=== PATIENT | female | born 1930 | race Two or more races ===

== ENCOUNTER 2016-07-13 13:28 | Emergency (ER) | payer BC, OTHER ==
[~2016-07-13] VITALS: Ht 162.6 cm; Wt 77.1 kg
[~2016-07-13 13:28] MED LIST: ALPR0.5T PO; CARV3.12 PO; CILO50TA10 PO; CLON0.1T PO; FURO-145 PO; INSU100C10 SQ; INSU100C7 SQ; LEVO88TA9 PO; NEBI5TAB8 PO; ROSU10TA PO
--- NOTE | 2016-07-13 13:40 | NUR ---
pt to er bed 11 accompanied by son. c/o short onset blurring of vision earlier today. states hade same issue yesterday thats why she got concerned. 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 also c/o chronic back pain. gowned and placed on monitor. awaiting md amaya.
--- NOTE | 2016-07-13 14:51 | NUR ---
dr galvez at bedside for eval.
--- NOTE | 2016-07-13 14:55 | NUR ---
iv line started blood drawn ansd sent to lab.
[2016-07-13 14:59] LABS: BASOPHILS % (AUTO) 0.7 % (0.0-2.0); EOSINOPHILS # (AUTO) 0.1 /CMM (0.0-0.7); EOSINOPHILS % (AUTO) 1.6 % (0.0-6.0); HEMATOCRIT 40 % (33-45); HEMOGLOBIN 13.3 g/dL (11.5-14.8); LYMPHOCYTES # (AUTO) 1.5 /CMM (0.8-4.8); LYMPHOCYTES % (AUTO) 21.4 % (20.0-44.0); MEAN CORPUSCULAR HEMOGLOBIN 30 PG (26.0-33.0); MEAN CORPUSCULAR HGB CONC 34 g/dl (31.0-36.0); MEAN CORPUSCULAR VOLUME 91 fL (82-100); MONOCYTES # (AUTO) 0.7 /CMM (0.1-1.30); MONOCYTES % (AUTO) 10.1 % (2.0-12.0); NEUTROPHILS # (AUTO) 4.5 /CMM (1.8-8.9); NEUTROPHILS % (AUTO) 66.2 % (43.0-81.0); PLATELET COUNT (AUTO) 250 /CMM (150-450); RDW COEFFICIENT OF VARIATION 13.3 (11.5-15.0); RED BLOOD CELL COUNT(AUTO) 4.38 MIL/uL (4.0-5.2); WHITE BLOOD COUNT (AUTO) 6.8 K/uL (4.3-11.0)
[2016-07-13 15:17] LABS: CALCIUM, SERUM 8.9 mg/dL (8.5-10.1); POTASSIUM 4.6 mmol/L (3.5-5.1)
[2016-07-13 16:05] LABS: APPEARANCE,URINE Clear (CLEAR); BILIRUBIN,URINE Negative (NEGATIVE); BLOOD, URINE Negative Ery/uL (NEGATIVE); COLOR,URINE Yellow (YELLOW); KETONES,URINE Negative (NEGATIVE); LEUKOCYTE ESTERASE ,URINE Negative (NEGATIVE); NITRITE, URINE Negative (NEGATIVE); PH,URINE 5.5 (5.0-8.0); PROTEIN,URINE Negative (NEGATIVE); UROBILINOGEN,URINE 0.2 EU/dL (0.2)
[2016-07-13 16:06] LABS: UGLUCOSE 100 MG/DL mg/dL (NEGATIVE)
[2016-07-13] MEDS ORDERED: IBUP-1482 PO (16:11)
[2016-07-13] MEDS ORDERED: CARV12.52 PO (16:11)
[2016-07-13] MEDS ORDERED: LANS30CA56 PO (16:11)
[2016-07-13] MEDS ORDERED: LEVO100T9 PO (16:11)
[2016-07-13] MEDS ORDERED: IRBE300T19 PO (16:11)
[2016-07-13] MEDS ORDERED: ESCI10TA PO (16:11)
[2016-07-13] MEDS ORDERED: AMLODIPINE BESYLATE 5 MG TABLET ONE (16:36)
[2016-07-13] MEDS: AMLODIPINE BESYLATE 5 MG TABLET PO ONE (16:43)
--- NOTE | 2016-07-13 18:26 | NUR ---
SIGNIFICANT DECREASE IN B/P. DR VERAS MADE AWARE. IVHL D/C'D. D/C IN STABLE CONDITION.
[2016-07-13 18:28] VITALS: BP 148/84
== END 2016-07-13 18:31 | disposition home or self-care (01) ==
LOC: ER 13:30
DX: I10 Essential (primary) hypertension (principal); M54.5 Low back pain; Z88.0 Allergy status to penicillin; E11.9 Type 2 diabetes mellitus without complications
CPT/HCPCS: 36415; 80048-TC; 81000-TC; 85025-TC; 87086-TC; Z7610

== ENCOUNTER 2017-04-18 12:06 | Emergency (ER) | payer OTHER ==
[~2017-04-18] VITALS: Ht 165.1 cm; Wt 63.5 kg
[~2017-04-18 12:06] MED LIST changes: -ALPR0.5T PO; +CARV12.52 PO; -CARV3.12 PO; -CILO50TA10 PO; -CLON0.1T PO; +ESCI10TA PO; +IBUP-1957 PO; +IRBE300T19 PO; +LANS30CA56 PO; +LEVO100T9 PO; -LEVO88TA9 PO; -NEBI5TAB8 PO; -ROSU10TA PO
[2017-04-18 12:10] VITALS: BP 149/82
== END 2017-04-18 12:52 | disposition home or self-care (01) ==
LOC: ER 12:07
DX: B02.9 Zoster without complications (principal); I10 Essential (primary) hypertension; E11.9 Type 2 diabetes mellitus without complications; M81.0 Age-related osteoporosis without current pathological fracture; Z88.0 Allergy status to penicillin; Z79.4 Long term (current) use of insulin; Z79.899 Other long term (current) drug therapy
CPT/HCPCS: A4606; Z7610

== ENCOUNTER 2017-12-08 05:07 | Emergency (ER) | payer OTHER ==
[~2017-12-08] VITALS: Ht 167.6 cm; Wt 88.9 kg
--- NOTE | 2017-12-08 05:20 | NUR ---
PT TO ER BED 13. BIBRA FROM HOME C/O L SHOULDER PAIN X 2 HOURS. DENIES TRAUMA. MADE AWARE OF PT B/P 211/81. 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 VSS/RESP EVEN UNLABORED/NAD NOTED/SKIN WARM AND DRY/AFEBRILE/DENIES N-V-D/AOX4. AWAITNG MD AGUIRRE.
[2017-12-08] MEDS ORDERED: HYDROCODONE/APAP 5/325MG 1 EACH TABLET PO ONE (05:30)
[2017-12-08] MEDS ORDERED: CARISOPRODOL 350 MG TABLET PO ONE (05:30)
[2017-12-08] MEDS ORDERED: CARISOPRODOL 350 MG TABLET ONE (05:40)
[2017-12-08] MEDS ORDERED: HYDROCODONE/APAP 5/325MG 1 EACH TABLET ONE (05:40)
[2017-12-08] MEDS ORDERED: IBUPROFEN 600 MG TABLET PO ONE ×2 (06:30→06:32)
--- NOTE | 2017-12-08 06:35 | NUR ---
MADE AWARE PT B/P 197/70, NO NEW ORDERS RECEIVED.
--- NOTE | 2017-12-08 07:07 | NUR ---
Patient discharged to home in stable condition. Written and verbal after care instructions given. Patient verbalizes understanding of instruction. Patient is awake and alert to self, day, and place. Patient discharged by wheelchair.
[2017-12-08 07:08] VITALS: BP 174/82
== END 2017-12-08 07:09 | disposition home or self-care (01) ==
LOC: ER 05:09
DX: M54.6 Pain in thoracic spine (principal); M79.1 Myalgia; I10 Essential (primary) hypertension; E11.9 Type 2 diabetes mellitus without complications; Z88.0 Allergy status to penicillin; Z79.4 Long term (current) use of insulin; Z79.899 Other long term (current) drug therapy
CPT/HCPCS: 99284; A4606; Z7610

== ENCOUNTER 2018-02-06 19:18 | Emergency (ER) | payer BC ==
[~2018-02-06] VITALS: Ht 165.1 cm; Wt 81.6 kg
--- NOTE | 2018-02-06 19:55 | NUR ---
BBHUSBAND FROM HOME C/C "RT FOOT PAIN X2 WEEKS"; DENIES TRAUMA. DISTAL CMS INTACT. PT IS AAOX4. SKIN WNL. RR EVEN AND UNLABORED. NO S/S OF ACUTE DISTRESS NOTED. PT PLACED ON LAYER OUT PLATE GLASS AND POX. PT SAFETY AND MEASURES IN PLACE.
[2018-02-06 21:50] LABS: BASOPHILS # (AUTO) 0.1 /CMM (0.0-0.2); BASOPHILS % (AUTO) 0.6 % (0.0-2.0); EOSINOPHILS % (AUTO) 2.2 % (0.0-6.0); HEMATOCRIT 39 % (33-45); HEMOGLOBIN 13.2 g/dL (11.5-14.8); LYMPHOCYTES # (AUTO) 2.1 /CMM (0.8-4.8); LYMPHOCYTES % (AUTO) 23.8 % (20.0-44.0); MEAN CORPUSCULAR HGB CONC 34 g/dl (31.0-36.0); MEAN CORPUSCULAR VOLUME 92 fL (82-100); MONOCYTES # (AUTO) 0.8 /CMM (0.1-1.30); MONOCYTES % (AUTO) 9.3 % (2.0-12.0); NEUTROPHILS # (AUTO) 5.7 /CMM (1.8-8.9); NEUTROPHILS % (AUTO) 64.1 % (43.0-81.0); PLATELET COUNT (AUTO) 277 /CMM (150-450); RDW COEFFICIENT OF VARIATION 13.7 (11.5-15.0); RED BLOOD CELL COUNT(AUTO) 4.26 MIL/uL (4.0-5.2); WHITE BLOOD COUNT (AUTO) 8.9 K/uL (4.3-11.0)
[2018-02-06 22:00] LABS: CALCIUM, SERUM 9.4 mg/dL (8.5-10.1); CARBON DIOXIDE 31 mmol/L (21-32); CHLORIDE 109 mmol/L (98-107); CREATININE 1.1 mg/dL (0.6-1.3); GLUCOSE 107 mg/dL (74-106); POTASSIUM 4.9 mmol/L (3.5-5.1); SODIUM SERUM 144 mmol/L (136-145); UREA NITROGEN, BLOOD 23 mg/dL (7-18)
[2018-02-06 22:04] LABS: INR 0.96 (0.85-1.15)
[2018-02-06 22:06] LABS: ALANINE AMINOTRANSFERASE 27 U/L (12-78); ALBUMIN 3.2 g/dL (3.4-5.0); ALKALINE PHOSPHATASE 91 U/L (46-116); ASPARTATE AMINOTRANSFERASE 22 U/L (15-37); BILIRUBIN,TOTAL 0.4 mg/dL (0.2-1.0); TOTAL PROTEIN, SERUM 7.4 g/dL (6.4-8.2)
[2018-02-06 22:08] LABS: TROPONIN I < 0.017 ng/mL (0.00-0.056)
[2018-02-06] MEDS ORDERED: IBUPROFEN 600 MG TABLET PO ONE ×2 (22:51→23:00)
--- NOTE | 2018-02-06 23:01 | NUR ---
Patient discharged to home in stable condition. Written and verbal after care instructions given. Patient verbalizes understanding of instruction.
[2018-02-06 23:02] VITALS: BP 170/93
== END 2018-02-06 23:03 | disposition home or self-care (01) ==
LOC: ER 19:21
DX: R91.1 Solitary pulmonary nodule (principal); R60.0 Localized edema; I10 Essential (primary) hypertension; E11.9 Type 2 diabetes mellitus without complications; E66.9 Obesity, unspecified; Z88.0 Allergy status to penicillin; Z79.4 Long term (current) use of insulin
CPT/HCPCS: 36415; 71045; 80048; 80076; 84484; 85025; 85730; 93005; 93971; 99285; A4606; Z7610

== ENCOUNTER 2018-06-08 01:20 | Emergency (ER) | payer BC ==
[~2018-06-08] VITALS: Ht 149.9 cm; Wt 62.6 kg
--- NOTE | 2018-06-08 01:40 | NUR ---
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
--- NOTE | 2018-06-08 02:00 | NUR ---
Dr James ordered food for pt, egg sandwich and orange juice +jogurt given, order to recheck bs in 30 min's.
--- NOTE | 2018-06-08 02:30 | NUR ---
bs rechecked, 74, md brooks made aware, with alma for repeat D50 1/2 an amp to be given and recheck sugar in an 1 hr.
[2018-06-08] MEDS ORDERED: DEXTROSE 50%-WATER 50 ML DISP.SYRIN ONE (02:43)
[2018-06-08] MEDS ORDERED: DEXTROSE 50%-WATER 50 ML DISP.SYRIN IVP ONE (03:00)
--- NOTE | 2018-06-08 03:40 | NUR ---
bs rechecked 138, dr brooks made aware, pt cleared for discharge.
--- NOTE | 2018-06-08 04:17 | NUR ---
Patient discharged to home in stable condition. Written and verbal after care instructions given. Patient verbalizes understanding of instruction. EKG strip provided to pt d/t episode of bradycardia and advised by dr brooks to f/u with primary health provider.
[2018-06-08 04:26] VITALS: BP 145/66
== END 2018-06-08 04:33 | disposition home or self-care (01) ==
LOC: ER 01:24
DX: E10.649 Type 1 diabetes mellitus with hypoglycemia without coma (principal); E66.9 Obesity, unspecified; I10 Essential (primary) hypertension; R00.1 Bradycardia, unspecified; Z88.0 Allergy status to penicillin; Z79.4 Long term (current) use of insulin
CPT/HCPCS: 82962 ×2; 93005; 96374; 99283; A4606

== ENCOUNTER 2018-12-27 06:37 | Emergency (ER) | payer OTHER ==
[~2018-12-27] VITALS: Ht 147.3 cm; Wt 88.5 kg
--- NOTE | 2018-12-27 06:40 | NUR ---
to bed 2 bib ems c/o worsening L shoulder pain for several days. pt aaox4 no acute distress noted, resp even and unlabored. pending er md amaya.
--- NOTE | 2018-12-27 06:45 | NUR ---
er md at bedside to eval pt with orders received. will carry out orders.
[2018-12-27] MEDS ORDERED: ACETAMINOPHEN ES 500 MG TABLET ONE (06:57)
[2018-12-27] MEDS ORDERED: IBUPROFEN 600 MG TABLET PO ONE ×2 (06:57→07:00)
--- NOTE | 2018-12-27 06:58 | NUR ---
pt transported to radiology for ct.
[2018-12-27] MEDS ORDERED: ACETAMINOPHEN ES 500 MG TABLET PO ONE (07:00)
--- NOTE | 2018-12-27 07:08 | NUR ---
pt back from radiology. pending ct result.
--- NOTE | 2018-12-27 07:11 | NUR ---
report given to am shift christophe eagle.
--- NOTE | 2018-12-27 08:24 | NUR ---
patient a/ox3, son at bedside, breathing even and unlabored, denies pain at this time. Patient discharged to home in stable condition. Written and verbal after care instructions given. Patient verbalizes understanding of instruction.
[2018-12-27 08:29] VITALS: BP 144/55
== END 2018-12-27 08:30 | disposition home or self-care (01) ==
LOC: ER 06:39
DX: M54.12 Radiculopathy, cervical region (principal); I10 Essential (primary) hypertension; E11.9 Type 2 diabetes mellitus without complications; Z88.0 Allergy status to penicillin; Z79.4 Long term (current) use of insulin
CPT/HCPCS: 72125-TC